=== PATIENT | female | born 1965 | race Caucasian/White ===

== ENCOUNTER 2019-03-09 14:03 | Emergency (ER) | payer MEDICAID, OTHER ==
[~2019-03-09] VITALS: Ht 172.7 cm; Wt 79.5 kg
[~2019-03-09 14:03] MED LIST: ATOR40TA71 PO; GABA-532 PO; HCTZ25T PO; HYDR-3965 PO; IBUP-1984 PO; LEVO125T PO; METR-159 PO; ONDA4TAB6 PO; VANC250C12 PO; ZOLP10TA5 PO
--- NOTE | 2019-03-09 14:28 | NUR ---
Fatoumata notified of patients symptoms
[2019-03-09] MEDS ORDERED: normal saline 1000ML IV soln IVB ONE ×4 (14:30→18:25)
[2019-03-09 14:38] LABS: BASOPHILS # (AUTO) 0.1 X10'3 (0-0.2); BASOPHILS % (AUTO) 0.8 % (0-1); EOSINOPHILS % (AUTO) 0 % (0-6); HEMATOCRIT 40.2 % (35.0-45.0); HEMOGLOBIN 13.9 g/dl (12.0-16.0); LYMPHOCYTES # (AUTO) 2.6 X10'3 (1.1-4.8); LYMPHOCYTES % (AUTO) 23.6 % (21-51); MEAN CORPUSCULAR HGB CONC 34.5 g/dL (33.0-36.5); MEAN CORPUSCULAR VOLUME 92.8 FL (78-98); MEAN PLATELET VOLUME 6.8 FL (7.4-10.4); MONOCYTES # (AUTO) 0.5 X10'3 (0-0.9); MONOCYTES % (AUTO) 4.4 % (2-12); NEUTROPHILS # (AUTO) 7.8 X10'3 (1.8-7.7); NEUTROPHILS % (AUTO) 71.2 % (42-75); PLATELET COUNT 268 X10'3 (140-440); RED BLOOD COUNT 4.33 X10'6 (4.20-5.60); RED CELL DISTRIBUTION WIDTH 12.9 % (11.5-14.5); WHITE BLOOD COUNT 10.9 X10'3 (4.5-11.0)
[2019-03-09 14:57] LABS: PARTIAL THROMBOPLASTIN TIME 27 SECONDS (22-32)
[2019-03-09 15:01] LABS: ALANINE AMINOTRANSFERASE 68 U/L (12-78); ALBUMIN 4.2 G/DL (3.4-5.0); ALBUMIN/GLOBULIN RATIO 1.1 (1.1-1.5); ALKALINE PHOSPHATASE 78 IU/L (46-116); ANION GAP 13 (8-16); ASPARTATE AMINO TRANSFERASE 103 U/L (10-37); BILIRUBIN,TOTAL 0.5 MG/DL (0.1-1.0); BLOOD UREA NITROGEN 13 MG/DL (7-18); BUN/CREATININE RATIO 13.4 (6.6-38.0); CALCIUM 8.3 MG/DL (8.5-10.1); CHLORIDE 90 MMOL/L (99-107); CREATININE 0.97 MG/DL (0.40-0.90); ETHANOL 0.262 GM/DL (0.0-0.010); GLUCOSE 105 MG/DL (70-104); POTASSIUM 3.5 MMOL/L (3.5-5.1); SODIUM 133 MMOL/L (135-145); TOTAL CARBON DIOXIDE 30.4 MMOL/L (24-32); eGFR 61 ML/MIN
[2019-03-09] MEDS ORDERED: LORazepam 2 mg/ml vial IV ONE (15:15)
[2019-03-09 16:43] LABS: CLARITY,URINE SLIGHTLY CLOUDY (Clear); COLOR,URINE YELLOW (Yellow); GLUCOSE, URINE NEGATIVE (Neg); KETONES,URINE >=80 mg/dl (Neg); LEUKOCYTE ESTERASE ,URINE NEGATIVE (Neg); NITRITES, URINE NEGATIVE (Neg); OCCULT BLOOD,URINE MODERATE (Neg); PH,URINE 5.5 (4.8-8.0); PROTEIN,URINE 30 mg/dl (Neg); UROBILINOGEN,URINE 0.2 E.U/dL (0.2-1.0)
[2019-03-09 16:44] LABS: UA COLLECTION TYPE CLN CATCH MIDSTREAM
[2019-03-09 16:47] LABS: D-DIMER 2.06 MG/L FEU (0-0.50)
[2019-03-09 16:52] LABS: BACTERIA,URINE 1+ /HPF (Neg); MUCUS STRANDS MODERATE /LPF (Neg); SQUAMOUS EPITHELIAL CELL,UR MANY /LPF (FEW); WBC,URINE 0-4 /HPF (0-4)
[2019-03-09] MEDS ORDERED: iohexol 350MG/ML 100ml bottle IV ONE (16:57)
[2019-03-09 17:00] LABS: URINE AMPHETAMINE SCREEN NEGATIVE (Neg); URINE BARBITUATE SCREEN NEGATIVE (Neg); URINE BENZODIAZEPINES SCREEN NEGATIVE (Neg); URINE CANNABINOID SCREEN NEGATIVE (Neg); URINE COCAINE SCREEN NEGATIVE (Neg); URINE METHADONE SCREEN NEGATIVE (Neg); URINE OPIATE SCREEN NEGATIVE (Neg); URINE PHENCYCLIDINE SCREEN NEGATIVE (Neg)
[2019-03-09 18:30] VITALS: BP 119/87
== END 2019-03-09 20:05 | disposition home or self-care (01) ==
LOC: ER 14:04
DX: T51.91XA Toxic effect of unspecified alcohol, accidental (unintentional), initial encounter (principal); F10.20 Alcohol dependence, uncomplicated; R07.89 Other chest pain; R79.1 Abnormal coagulation profile; E78.00 Pure hypercholesterolemia, unspecified; I10 Essential (primary) hypertension; G89.29 Other chronic pain; F41.9 Anxiety disorder, unspecified; F32.9 Major depressive disorder, single episode, unspecified; F12.90 Cannabis use, unspecified, uncomplicated; Z98.51 Tubal ligation status; Z56.0 Unemployment, unspecified; Z88.2 Allergy status to sulfonamides; Z79.899 Other long term (current) drug therapy; Y90.0 Blood alcohol level of less than 20 mg/100 ml; Y92.89 Other specified places as the place of occurrence of the external cause
CPT/HCPCS: 36415; 70450; 71045; 71275; 80053; 80305; 80320; 81001; 82140; 83605; 83735; 84145; 84484; 85025; 85379; 85610; 85730; 87040; 93005; 96374; 99284; J2060; J7030; Q9967; 96361

== ENCOUNTER 2021-02-11 11:50 | Emergency (ER) | payer SELFPAY ==
[~2021-02-11] VITALS: Ht 167.6 cm; Wt 77.0 kg
[~2021-02-11 11:50] MED LIST changes: -HCTZ25T PO; +HYDR25TA5 PO
[2021-02-11] MEDS ORDERED: ondansetron/PF 4mg/2ml inj IV ONE (12:25)
[2021-02-11] MEDS ORDERED: normal saline 1000ml 1,000 ML IV ONE (12:25)
[2021-02-11] MEDS ORDERED: thiamine 100mg/ml 2ml inj. IV ONE (12:25)
[2021-02-11 12:30] LABS: BASOPHILS # (AUTO) 0.1 X10'3 (0-0.2); EOSINOPHILS % (AUTO) 0.1 % (0-6); HEMATOCRIT 40.3 % (35.0-45.0); HEMOGLOBIN 13.8 g/dl (12.0-16.0); LYMPHOCYTES # (AUTO) 1.3 X10'3 (1.1-4.8); LYMPHOCYTES % (AUTO) 10.7 % (21-51); MEAN CORPUSCULAR HEMOGLOBIN 32.2 PG (27.0-31.0); MEAN CORPUSCULAR HGB CONC 34.3 g/dL (33.0-36.5); MEAN CORPUSCULAR VOLUME 93.8 FL (78-98); MEAN PLATELET VOLUME 6.5 FL (7.4-10.4); MONOCYTES # (AUTO) 0.6 X10'3 (0-0.9); MONOCYTES % (AUTO) 5.4 % (2-12); NEUTROPHILS # (AUTO) 9.8 X10'3 (1.8-7.7); NEUTROPHILS % (AUTO) 82.8 % (42-75); PLATELET COUNT 265 X10'3 (140-440); RED CELL DISTRIBUTION WIDTH 12.7 % (11.5-14.5); WHITE BLOOD COUNT 11.9 X10'3 (4.5-11.0)
[2021-02-11] MEDS ORDERED: pantoprazole 40 MG vial IV ONE ×3 (12:30→12:40)
--- NOTE | 2021-02-11 12:45 | NUR ---
Patient wants to leave AMA for undisclosed reasons. patient states she should have never come. Dr. Mansfield made aware and talked to patient about the danger of leaving ama. patient is still adament about leaving and is aware and understands the consequenses that could happen. Cab to take patient home. All belongings with patient. patient iv dc. patient left ama.
[2021-02-11 12:49] VITALS: BP 156/89
[2021-02-11 12:49] LABS: ALANINE AMINOTRANSFERASE 38 U/L (12-78); ALBUMIN/GLOBULIN RATIO 1.2 (1.1-1.5); ALKALINE PHOSPHATASE 65 IU/L (46-116); ANION GAP 10 (8-16); ASPARTATE AMINO TRANSFERASE 52 U/L (10-37); BILIRUBIN,TOTAL 0.6 MG/DL (0.1-1.0); BLOOD UREA NITROGEN 13 MG/DL (7-18); BUN/CREATININE RATIO 20.6 (6.6-38.0); CHLORIDE 90 MMOL/L (99-107); CREATININE 0.63 MG/DL (0.40-0.90); GLUCOSE 111 MG/DL (70-104); LIPASE 170 U/L (73-393); POTASSIUM 3.3 MMOL/L (3.5-5.1); SODIUM 131 MMOL/L (135-145); TOTAL CARBON DIOXIDE 30.6 MMOL/L (24-32); TOTAL PROTEIN 7.4 G/DL (6.4-8.2); eGFR > 90 ML/MIN
== END 2021-02-11 12:52 | disposition left against medical advice (07) ==
LOC: ER 11:50
DX: R11.2 Nausea with vomiting, unspecified (principal); K59.00 Constipation, unspecified; R10.13 Epigastric pain; E78.00 Pure hypercholesterolemia, unspecified; I10 Essential (primary) hypertension; G89.29 Other chronic pain; F41.9 Anxiety disorder, unspecified; F32.9 Major depressive disorder, single episode, unspecified; F10.10 Alcohol abuse, uncomplicated; F12.90 Cannabis use, unspecified, uncomplicated; Z56.0 Unemployment, unspecified; Z98.51 Tubal ligation status; Z88.2 Allergy status to sulfonamides; Z79.899 Other long term (current) drug therapy; Y90.9 Presence of alcohol in blood, level not specified
CPT/HCPCS: 36415; 80053; 83690; 85025; 99284

== ENCOUNTER 2021-08-03 22:52 | Emergency (ER) | payer MEDICAID ==
[~2021-08-03] VITALS: Ht 165.1 cm; Wt 72.7 kg
[2021-08-03 23:03] VITALS: BP 131/85
[2021-08-04] MEDS ORDERED: normal saline 1000ml 1,000 ML IV ONE (00:05)
[2021-08-04] MEDS ORDERED: metoclopramide 5 mg/ml inj IV ONE (00:05)
[2021-08-04] MEDS ORDERED: morphine 4 MG/ML inj SYRINge IV ONE (00:05)
[2021-08-04 00:06] LABS: BASOPHILS # (AUTO) 0.1 X10'3 (0-0.2); BASOPHILS % (AUTO) 0.6 % (0-1); EOSINOPHILS % (AUTO) 0.3 % (0-6); HEMATOCRIT 42.9 % (35.0-45.0); LYMPHOCYTES # (AUTO) 1.8 X10'3 (1.1-4.8); LYMPHOCYTES % (AUTO) 18.9 % (21-51); MEAN CORPUSCULAR HEMOGLOBIN 32.4 PG (27.0-31.0); MEAN CORPUSCULAR VOLUME 92.3 FL (78-98); MEAN PLATELET VOLUME 6.4 FL (7.4-10.4); MONOCYTES # (AUTO) 0.7 X10'3 (0-0.9); MONOCYTES % (AUTO) 7.9 % (2-12); NEUTROPHILS # (AUTO) 6.7 X10'3 (1.8-7.7); NEUTROPHILS % (AUTO) 72.3 % (42-75); PLATELET COUNT 369 X10'3 (140-440); RED BLOOD COUNT 4.65 X10'6 (4.20-5.60); RED CELL DISTRIBUTION WIDTH 12.9 % (11.5-14.5); WHITE BLOOD COUNT 9.3 X10'3 (4.5-11.0)
[2021-08-04 00:14] LABS: URINE HCG NEGATIVE (NEG)
[2021-08-04 00:16] LABS: ALANINE AMINOTRANSFERASE 44 U/L (12-78); ALBUMIN 4.2 G/DL (3.4-5.0); ALKALINE PHOSPHATASE 73 IU/L (46-116); ANION GAP 11 (8-16); ASPARTATE AMINO TRANSFERASE 50 U/L (10-37); BILIRUBIN,TOTAL 0.8 MG/DL (0.1-1.0); BLOOD UREA NITROGEN 12 MG/DL (7-18); BUN/CREATININE RATIO 15.4 (6.6-38.0); CALCIUM 8.6 MG/DL (8.5-10.1); CHLORIDE 91 MMOL/L (99-107); CREATININE 0.78 MG/DL (0.40-0.90); GLUCOSE 121 MG/DL (70-104); LIPASE 82 U/L (73-393); POTASSIUM 3.1 MMOL/L (3.5-5.1); SODIUM 135 MMOL/L (135-145); TOTAL CARBON DIOXIDE 33.3 MMOL/L (24-32); TOTAL PROTEIN 8.3 G/DL (6.4-8.2); eGFR 77 ML/MIN
[2021-08-04 00:42] LABS: CLARITY,URINE CLEAR (Clear); COLOR,URINE YELLOW (Yellow); GLUCOSE, URINE NEGATIVE (Neg); KETONES,URINE NEGATIVE (Neg); LEUKOCYTE ESTERASE ,URINE NEGATIVE (Neg); NITRITES, URINE NEGATIVE (Neg); OCCULT BLOOD,URINE NEGATIVE (Neg); PH,URINE 6.5 (4.8-8.0); PROTEIN,URINE NEGATIVE (Neg); UROBILINOGEN,URINE 0.2 E.U/dL (0.2-1.0)
[2021-08-04 00:49] LABS: UA COLLECTION TYPE NON-SPECIFIED
[2021-08-04] MEDS ORDERED: METO10TA3 PO (00:59)
[2021-08-04] MEDS ORDERED: aspirin 325mg tablet PO ONE (01:05)
== END 2021-08-04 01:11 | disposition left against medical advice (07) ==
LOC: ER 22:52
DX: R07.89 Other chest pain (principal); R10.84 Generalized abdominal pain; F41.9 Anxiety disorder, unspecified; R11.2 Nausea with vomiting, unspecified; R19.7 Diarrhea, unspecified; E78.00 Pure hypercholesterolemia, unspecified; I10 Essential (primary) hypertension; G89.29 Other chronic pain; F32.9 Major depressive disorder, single episode, unspecified; F12.90 Cannabis use, unspecified, uncomplicated; Z98.51 Tubal ligation status; Z72.89 Other problems related to lifestyle; Z56.0 Unemployment, unspecified; Z88.2 Allergy status to sulfonamides; Z79.2 Long term (current) use of antibiotics; Z79.899 Other long term (current) drug therapy
CPT/HCPCS: 36415; 71045; 80053; 81003; 81025; 83605; 83690; 84484; 85025; 93005; 96361; 96374; 96375; 99285; J2270; J2765; J7030

== ENCOUNTER 2024-12-20 01:39 | Emergency (ER) | payer MEDICAID ==
[~2024-12-20] VITALS: Ht 167.6 cm; Wt 82.0 kg
[2024-12-20] MEDS: ondansetron/PF 4mg/2ml inj IV ONE (01:55)
--- NOTE | 2024-12-20 02:04 | ELECTROCARDIOGRAPH REPORT ---
[facility] Test Date: 2024-12-20 Test Time: 02:01:29 Pat Name: NANCY NUÑEZ Department: [facility]-ER Patient ID: [facility]-[id number] Room: Gender: F Subsystems Engineer: ARNALDO MARTINEZ : 1965 Requested By: BELINDA PIZARRO Order Number: [id number] Reading MD: Dr. Belinda Pizarro Measurements Intervals [place] Rate: 103 P: 0 OR: 0 QRS: 49 QRSD: 96 T: 74 QT: 331 QTc: 434 Interpretive Statements Atrial flutter Probable anteroseptal infarct, old Baseline wander in lead(s) V2 Electronically Signed On 12-20-2024 3:49:[address] Belinda Pizarro Please click the below link to view image of tracing.
--- NOTE | 2024-12-20 04:14 | Physician Documentation ---
History of Present Illness Chief Complaint: Vomiting Stated Complaint: ETOH/OVERDOSE Time Seen by MD: 04:10 OK to notify your PCP?: No Primary Medical Doctor: tejas Source: patient, RN notes reviewed Mode of Arrival: EMS, Ambulatory Exam Limitations: no limitations HPI 59 year old female, whose in May, brought to the ED via EMS complaining of nausea and vomiting for the last week, with heavy alcohol c onsumption for the last 10 days. She is currently intoxicated. She also reports diffuse abdominal pain that is migrating and waxing/waning. Finally she notes some constipation recently but has not been eating recently due to nausea and vomiting. She denies history of pancreatitis or liver disease. She has an appointment with a grief counselor at 1100 tomorrow. Medication Reconciliation Allergies: Coded Allergies: Sulfa (Sulfonamide Antibiotics) (Verified Allergy, Severe, SWELLING, 12/20/24) Scheduled Atorvastatin Calcium (Atorvastatin Calcium), 1 TABLET PO DAILY, (Reported) Gabapentin (Gabapentin), 1 CAP PO TID Hydrochlorothiazide (Hydrochlorothiazide), 1 TAB PO DAILY, (Reported) Levothyroxine Sodium (Synthroid), 112 MCG PO DAILY, (Reported) Metronidazole* (Flagyl*), 1 TAB PO TID Ondansetron Hcl (Zofran), 1 TABLET PO Q6H Vancomycin HCl (Vancocin HCl), 500 MG PO Q6H Scheduled PRN Hydrocodone Bit/Acetaminophen 5/325 MG ([place] 5/325 MG), 1 TAB PO Q6H PRN for moderate or severe pain, (Reported) Ibuprofen* (Motrin*), 800 MG PO Q8H PRN for pain ONDANSETRON ODT 4mg tablet (Ondansetron Odt), 1 TAB PO Q6H PRN PRN for nausea/vomiting Ondansetron Hcl (Zofran), 1 TAB PO Q6H PRN for nausea Zolpidem Tartrate* (Ambien*), 1 TABLET PO HS PRN for sleep Past Medical History Past Medical History: High Cholesterol, Heart Valve Disease, Hypertension, Thyroid (unspecified), Chronic Pain, Anxiety, Depression Past Surgical History: tubal ligation Other Past Surgical History: breast augmentation Patient History: (CAD) Coronary arteriosclerosis MOTHER ( AT 52 YEARS OLD OF HEAR DZ) Other Past Family History: none Smoking Status: Never smoker Alcohol Use: Abuse Drug Use: marijuana Lives with: Spouse Lives In: Other Occupation: unemployed Review of Systems All Other Systems at this time: Reviewed and Negative ROS As stated above in the HPI, otherwise all systems are reviewed and negative. Physical Exam Vital Signs: RN Vital Signs have been reviewed: Yes, Temperature: 99.3, Source: Oral, Heart Rate: 98, Respiratory Rate: 18, BP: 148/89, Pulse Oximetry: 94, Weight: 82.000 Oxygen Flow Rate: 0 Pulse Oximetry Reflects: adequate oxygenation Physical Exam General: The patient is well developed, well nourished, nontoxic appearing and is in no acute distress. Skin: [place], warm and dry with no rashes. HEENT: Head was normocephalic and atraumatic. Chest: Clear to auscultation bilaterally without wheezes, rales or rhonchi. No accessory muscle use. No dullness to percussion. Heart: Rate regular and rhythmic. S1, S2. No murmurs. Palpation of the chest wall was normal. No rubs or thrills. Abdomen: Soft, nontender and nondistended. Positive bowel sounds. No guarding or rebound. Extremities: No cyanosis, clubbing or edema. The patient moves all ex tremities. Pulses were equal and symmetric. Neurologic: Motor and sensation grossly intact. Cranial nerves II-XII grossly intact. A & O x4. Psychologic: Tearful, flat affect. No agitation. Progress Progress Note 0535: Reevaluation: Patient feeling improved after medications. Results/Orders Reviewed/noted all lab results: Yes Results/Orders Orders - DEL NICOLE MD Cbc/Diff (12/21/24 01:49) Urinalysis, Cult If Indicated (12/21/24 ) CMP (12/21/24 01:49) Electrocardiogram (12/20/24 ) Drug Screen, Urine (12/21/24 ) Ethanol (12/21/24 ) Straight Cath For Urine Sample (12/20/24 01:49) Completed Orders - DEL NICOLE MD Ondansetron Inj. (Zofran 4mg/2ml Vial) (12/20/24 01:50) Electrocardiogram (12/20/24 ) Medications Received in ER Medications (Trade) Dose Ordered Sig/Piper Route PRN Reason Start Time Stop Time Status Last Admin Dose Admin (Zofran 4mg/2ml vial) 4 mg ONCE ONCE IV 12/20/24 01:50 12/20/24 01:51 DC 12/20/24 01:55 4 MG Vital Signs 12/20/24 12/20/24 12/20/24 01:40 01:57 03:17 Temp 99.3 Pulse 104 98 Resp 16 18 18 B/P (MAP) 133/82 148/89 (108) Pulse Ox 93 94 O2 Flow Rate 0 Re-Evaluation Re-Evaluation : Re-Evaluation: Improved EKG/XRAY/CT/US/VASC/MRI EKG : Additional Comment Test Date: 2024-12-20 Test Time: 02:01:29 Pat Name: NANCY NUÑEZ Department: [facility]- Patient ID: [facility]-[id number] Room: Gender: Musician Instrumental: ARNALDO MARTINEZ : 1965 Requested By: DEL NICOLE Order Number: [id number] Reading MD: Dr. Del Nicole Measurements Intervals [place] Rate: 103 P: 0 IA: 0 QRS: 49 QRSD: 96 T: 74 QT: 331 QTc: 434 Interpretive Statements Atrial flutter Probable anteroseptal infarct, old Baseline wander in lead(s) V2 Electronically Signed On 12-20-2024 3:49:[address] Del Nicole (interpreted by ks) Medical Decision Making Additional info obtained from: old records Departure Time of Disposition: 05:37 Disposition: 01 HOME / SELF CARE / HOMELESS Impression: Primary Impression: Alcoholic gastritis Qualified Codes: K29.20 - Alcoholic gastritis without bleeding Additional Impressions: Hypokalemia alcohol intoxication Condition: Stable Discharge Instructions: Gastritis, Adult, Alcohol Intoxication Additional Instructions: Decrease alcohol consumption. Drink plenty of other fluids. Take zofran as pres cribed for nausea. Follow up with your grief counselor. Return to the ER for other concerns. Prescriptions ONDANSETRON ODT 4mg tablet (ONDANSETRON ODT) 4 Mg Tab.rapdis 1 TAB PO Q6H PRN PRN for nausea/vomiting for 4 Days, #16 TAB 0 Refills Prov: DEL NICOLE MD 12/20/24 Education Educated: Patient Educated regarding: diagnosis, treatment, need for follow up Signature Scribe Signature: Scribed for Del Nicole MD by Farheen Bermudez . 12/20/24 04:20 Attestation: The note accurately reflects work and decisions made by me.Del Nicole MD 12/20/24 04:14 DEL NICOLE MD December 20, 2024 04:14 FARHEEN SOUSA December 20, 2024 04:26
[2024-12-20 04:26] LABS: BASOPHILS % (AUTO) 0.3 % (0-1); EOSINOPHILS % (AUTO) 0 % (0-6); HEMATOCRIT 44.9 % (35.0-45.0); HEMOGLOBIN 15.4 g/dl (12.0-16.0); LYMPHOCYTES # (AUTO) 3.3 X10'3 (1.1-4.8); LYMPHOCYTES % (AUTO) 19.6 % (21-51); MEAN CORPUSCULAR HEMOGLOBIN 31.6 PG (27.0-31.0); MEAN CORPUSCULAR HGB CONC 34.3 g/dL (33.0-36.5); MEAN CORPUSCULAR VOLUME 92.2 FL (78-98); MEAN PLATELET VOLUME 7.3 FL (7.4-10.4); MONOCYTES # (AUTO) 0.7 X10'3 (0-0.9); MONOCYTES % (AUTO) 4.4 % (2-12); NEUTROPHILS # (AUTO) 12.8 X10'3 (1.8-7.7); NEUTROPHILS % (AUTO) 75.7 % (42-75); PLATELET COUNT 291 X10'3 (140-440); RED BLOOD COUNT 4.86 X10'6 (4.20-5.60); RED CELL DISTRIBUTION WIDTH 12.8 % (11.5-14.5); WHITE BLOOD COUNT 16.9 X10'3 (4.5-11.0)
[2024-12-20] MEDS: normal saline 1000ML IV soln IVB ONE (04:29)
[2024-12-20 04:34] LABS: BILIRUBIN,URINE NEGATIVE (Neg); CLARITY,URINE CLEAR (Clear); COLOR,URINE YELLOW (Yellow); GLUCOSE, URINE NEGATIVE (Neg); KETONES,URINE NEGATIVE (Neg); LEUKOCYTE ESTERASE ,URINE NEGATIVE (Neg); NITRITES, URINE NEGATIVE (Neg); OCCULT BLOOD,URINE TRACE-INTACT (Neg); PROTEIN,URINE 30 mg/dl (Neg); UROBILINOGEN,URINE 0.2 E.U/dL (0.2-1.0)
[2024-12-20 04:35] LABS: UA COLLECTION TYPE CLN CATCH MIDSTREAM
[2024-12-20 04:37] LABS: ALANINE AMINOTRANSFERASE 29 U/L (12-78); ALBUMIN 4.5 G/DL (3.4-5.0); ALBUMIN/GLOBULIN RATIO 1.3 (1.1-1.5); ALKALINE PHOSPHATASE 76 IU/L (46-116); ANION GAP 11 (8-16); ASPARTATE AMINO TRANSFERASE 35 U/L (10-37); BILIRUBIN,TOTAL 0.8 MG/DL (0.1-1.0); BLOOD UREA NITROGEN 18 MG/DL (7-18); BUN/CREATININE RATIO 22.2 (10.0-20.0); CALCIUM 9.1 MG/DL (8.5-10.1); CHLORIDE 89 MMOL/L (99-107); CREATININE 0.81 MG/DL (0.40-0.90); ETHANOL 158 MG/DL (<10); GLUCOSE 115 MG/DL (70-104); POTASSIUM 3.1 MMOL/L (3.5-5.1); SODIUM 134 MMOL/L (135-145); TOTAL CARBON DIOXIDE 34.2 MMOL/L (24-32); eCRCL 72 ML/MIN; eGFR 73 ML/MIN
[2024-12-20 04:41] LABS: BACTERIA,URINE NONE SEEN /HPF (Neg); RBC,URINE NONE SEEN /HPF (0-2); SQUAMOUS EPITHELIAL CELL,UR FEW /LPF (FEW); WBC,URINE NONE SEEN /HPF (0-4)
[2024-12-20] MEDS: magnesium sulf-water 2g/50mL 50 ML IV ONE (04:41)
[2024-12-20] MEDS: morphine 2 MG/ML inj. syringe IV ONE (04:54)
[2024-12-20] MEDS: haloperidol lactate 5mg/ml inj IM ONE (04:56)
[2024-12-20 05:09] LABS: URINE AMPHETAMINE SCREEN NEGATIVE (Neg); URINE BARBITUATE SCREEN NEGATIVE (Neg); URINE BENZODIAZEPINES SCREEN NEGATIVE (Neg); URINE CANNABINOID SCREEN NEGATIVE (Neg); URINE COCAINE SCREEN NEGATIVE (Neg); URINE METHADONE SCREEN NEGATIVE (Neg); URINE OPIATE SCREEN NEGATIVE (Neg); URINE PHENCYCLIDINE SCREEN NEGATIVE (Neg)
[2024-12-20] MEDS ORDERED: ONDA-243 PO (05:38)
[2024-12-20 05:42] VITALS: BP 121/94; PULSE 94; RESP 16; TEMP 98.8; O2SAT 94
[2024-12-20 05:55] LABS: MAGNESIUM 2.1 MG/DL (1.5-2.4)
== END 2024-12-20 05:47 | disposition home or self-care (01) ==
LOC: ER 01:40
DX: K29.20 Alcoholic gastritis without bleeding (principal); F10.129 Alcohol abuse with intoxication, unspecified; E87.6 Hypokalemia; I25.10 Atherosclerotic heart disease of native coronary artery without angina pectoris; I10 Essential (primary) hypertension; E78.00 Pure hypercholesterolemia, unspecified; F12.90 Cannabis use, unspecified, uncomplicated; F41.9 Anxiety disorder, unspecified; F32.A Depression, unspecified; G89.29 Other chronic pain; Y90.9 Presence of alcohol in blood, level not specified; Z88.2 Allergy status to sulfonamides; Z98.51 Tubal ligation status; Z79.899 Other long term (current) drug therapy; Z56.0 Unemployment, unspecified
CPT/HCPCS: 36415; 80053; 80305; 80320; 81001; 83735; 85025; 93005; 96365; 96372; 96375; 99284; J1630; J2270; J2405; J7030